=== PATIENT | male | born 1970 | race Caucasian/White ===

== ENCOUNTER 2018-05-17 15:30 | Emergency (ER) | payer OTHER, SELFPAY ==
[2018-05-17 15:32] VITALS: BP 147/91; PULSE 114; RESP 22; TEMP 36.2; O2SAT 100; BMI 25.1
--- NOTE | 2018-05-17 15:52 | ED.EXTPRO ---
HPI - Extremity Problem General Chief complaint: Extremity Problem,Nontraumatic Stated complaint: SHOOTING PAINS IN ARMS AND LEGS Time Seen by Provider: 05/17/18 15:41 Source: patient Mode of arrival: ambulatory Limitations: no limitations History of Present Illness HPI Narrative: Patient is a 48-year-old male who presents with sharp shooting pains down all of his extremities intermittently for the last 1 week. He says he notices it mostly right when he is about to fall asleep. In fact he stays awake pacing at night so that he does not notice it he has not been getting much sleep. On the way over here he had multiple episodes every 10 min and now he does not have any. Sharp shooting stabbing pains down left arm or right arm or lower legs. Initially started in his left arm he thought it was his heart. No time did he ever have any chest pain or shortness of breath. He has not had any fever. He has not taken any dkvs-hes-rwkuuzd medication for this. It is not associated with movement or rest. He has no weakness of the episodes are lasting only seconds. MD Complaint: extremity pain Related Data Allergies Allergy/AdvReac Type Severity Reaction Status Date / Time No Known Drug Allergies Allergy Verified 05/17/18 17:22 Review of Systems Review of Systems All systems reviewed & are unremarkable except as noted in HPI and below Constitutional Denies chills, Denies fever(s), Denies frequent falls, Denies lethargy and Denies weakness Eyes Denies change in vision, Denies eye discharge and Denies irritation ENT Ears, Nose, Mouth, and Throat: Denies dizziness Cardiovascular Denies chest pain, Denies irregular heart rhythm, Denies lightheadedness, Denies palpitations, Denies dyspnea, Denies dyspnea on exertion and Denies orthopnea Respiratory Denies cough, Denies dyspnea, Denies dyspnea on exertion and Denies wheezing Gastrointestinal Gastrointestinal: Denies abdominal pain, Denies change in bowel habits, Denies diarrhea, Denies nausea and Denies vomiting Genitourinary Denies hematuria, Denies flank pain, Denies urinary incontinence and Denies urinary urgency Musculoskeletal Denies back pain, Denies muscle weakness, Reports numbness and Denies tingling Integumentary/Breasts Denies pruritus, Denies erythema, Denies rash and Denies wounds Neurologic Denies dizziness, Denies frequent falls, Denies lack of coordination, Denies focal weakness, Reports numbness, Reports radicular pain, Denies tingling and Denies weakness Endocrine Denies palpitations Allergic/Immunologic Denies wheezing PFSH Social History Smoking Status: Never smoker Exam Initial Vital Signs Initial Vital Signs: Vital Signs Temperature 97.1 F L 05/17/18 15:32 Pulse Rate 114 H 05/17/18 15:32 Respiratory Rate 22 05/17/18 15:32 Blood Pressure 147/91 H 05/17/18 15:32 Pulse Oximetry 100 05/17/18 15:32 GENERAL: Well-appearing, well-nourished and in no acute distress. HEENT: Head atraumatic,EOMI, pupils reactive, face symmetric CARDIOVASCULAR: Regular rate and rhythm without murmurs, rubs or gallops. RESPIRATORY: Breath sounds equal bilaterally, no wheezes rales or rhonchi. ABDOMEN: Soft, nontender. Normoactive bowel sounds all 4 quadrants. No guarding or rebound. EXTREMITIES: Normal range of motion, no clubbing or edema. Neurovascularly intact NEUROLOGICAL: Alert and oriented x4.Normal gait and speech. Cranial nerves II through XII grossly intact. Good ytipgv-iy-qhza, good wppl-eb-orpo, strength equal bilaterally, no dysarthria or aphasia, sensation in tact to soft touch bilaterally, no visual changes, no facial droop SKIN: Warm, dry, no laceration, no petechiae, no rashes or lesions. Course Orders Ordered: ED Orders 05/17/18 15:41 EKG-12 Lead Stat 05/17/18 15:53 XR chest 1V Stat 05/17/18 16:30 Complete Blood Count AUTO DIFF Stat Comprehensive Metabolic Panel Stat Troponin & CK Cardiac Panel Stat Sodium Chloride (Normal Saline 0.9%) 1,000 mls @ 1,000 mls/hr IV CONT GERSON Last Infusion: 05/17/18 17:25 Dose: 0 mls/hr Admin: 05/17/18 16:38 Dose: 1,000 mls/hr Discontinued Medications Ketorolac Tromethamine (Toradol) 30 mg IV NOW ONE Stop: 05/17/18 15:54 Last Admin: 05/17/18 16:37 Dose: 30 mg Vital Signs - 8 hr 05/17/18 15:32 05/17/18 16:39 05/17/18 17:41 Temperature 97.1 F L Pulse Rate 114 H 89 80 Respiratory Rate 22 16 Blood Pressure 147/91 H Blood Pressure [Left Arm] 130/92 H 123/83 Pulse Oximetry 100 99 97 MDM - Extremity (Nontraumatic) Lab Data Attestation: I reviewed the patient's lab results. Result diagrams: 05/17/18 16:30 05/17/18 16:30 Lab Results 05/17/18 05/17/18 Range/Units 16:30 16:30 WBC 6.0 (4.5-11.0) X10^3/uL RBC 4.51 (4.5-5.9) X10^6/uL Hgb 14.5 (13.5-17.5) g/dL Hct 41.5 (41-53) % MCV 92.0 (80-100) fL MCH 32.2 (26-34) PG MCHC 35.0 (30-36) % RDW 12.3 (11.6-14.8) % Plt Count 233 (150-400) X10^3/uL Neut % (Auto) 64.8 (50-75) % Lymph % (Auto) 24.5 L (25-40) % [place] % (Auto) 9.4 (3-14) % Eos % (Auto) 0.9 L (2-4) % Baso % (Auto) 0.4 (0-2) % Neut # (Auto) 3900 (9320-8787) /uL Sodium 146 H (137-145) mmol/L Potassium 4.0 (3.4-5.1) mmol/L Chloride 108 H (98-107) mmol/L Carbon Dioxide 25 (22-32) mmol/L BUN 21 H (9-20) mg/dL Creatinine 0.80 (0.66-1.25) mg/dL Estimated GFR > 60.0 (>60) mL/min BUN/Creatinine Ratio 26.3 H (6-22) Glucose 92 (70-100) mg/dL Calcium 9.6 (8.4-10.2) mg/dL Total Bilirubin 0.6 (0.2-1.3) mg/dL AST 25 (17-59) IU/L ALT 29 (21-72) IU/L Alkaline Phosphatase 39 (38-126) U/L Total Creatine Kinase 58 (55-170) U/L CK-MB (CK-2) TNP CK-MB (CK-2) Rel Index TNP Troponin I < 0.012 (0.01-0.034) ng/mL Total Protein 7.9 (6.3-8.2) g/dL Albumin 4.7 (3.5-5.0) g/dL Globulin 3.2 (1.7-4.1) g/dL Albumin/Globulin Ratio 1.5 (1.0-2.8) Imaging Data Chest x-ray: Radiologist's impression: PROCEDURE: XR CHEST 1V INDICATIONS: chest pain TECHNIQUE: One view of the chest was acquired. COMPARISON: None. FINDINGS: Surgical changes and devices: None. Lungs and pleura: No pleural effusions or pneumothorax. Lungs are clear. Mediastinum: Mediastinal contours appear normal. Heart size is normal. Bones and chest wall: No suspicious bony lesions. Overlying soft tissues appear unremarkable. IMPRESSION: Negative chest. Dictated by: Daniel Ann M.D. on 05/17/2018 at 17:28 ECG Data Attestation EKG: I personally reviewed and interpreted this ECG as follows: Prior ECG tracings: not available for review Interpretation: Sinus rhythm rate [address] changes no T-wave inversions no priors to compare. MDM Narrative Medical decision making narrative: Patient has sharp shooting pains sporadically not consistent specific neuropathy or cardiac symptoms. The Toradol does seem to help. Blood work and EKG within normal limits. Discharge Plan Departure Patient Disposition: Home Clinical Impression: Neuropathy Instructions: DI for Peripheral Neuropathy Activity Restrictions/Additional Instructions: *You have been diagnosed with neuropathic pain *What to do: Blood work EKG chest x-ray all within normal limits symptoms not consistent with heart. If symptoms persist may require evaluation with Neurology *Continue to take medications as directed -Motrin 600 mg every 6-8 hours if needed for severe pain *Follow up with your primary care provider in 2-3 days *Return to ER if you should have any new, worsening or concerning symptoms Referrals: Kang Rose MD [Non-Staff] -
[2018-05-17] MEDS: KETOROLAC 60 MG/2 ML VIAL 30 MG IV (16:37)
[2018-05-17] MEDS: SODIUM CHLORIDE 0.9% 1,000 ML 1000 ML IV (16:38)
[2018-05-17 16:39] VITALS: BP 130/92; PULSE 89; RESP 16; O2SAT 99
[2018-05-17 16:44] LABS: Add Manual Diff / Slide Review NO; Basophils Percent Auto 0.4 % (0-2); Eosinophils Percent Auto 0.9 % (2-4); Hematocrit 41.5 % (41-53); Hemoglobin 14.5 g/dL (13.5-17.5); Lymphocytes Percent Auto 24.5 % (25-40); Mean Corpuscular Hemoglobin 32.2 PG (26-34); Monocytes Percent Auto 9.4 % (3-14); Neutrophils Absolute Auto 3900 /uL (3000-5900); Neutrophils Percent Auto 64.8 % (50-75); Platelet Count 233 X10^3/uL (150-400); Red Blood Cell Count 4.51 X10^6/uL (4.5-5.9); Red Cell Distribution Width 12.3 % (11.6-14.8)
[2018-05-17 16:58] LABS: Alanine Aminotransferase 29 IU/L (21-72); Albumin 4.7 g/dL (3.5-5.0); Albumin Globulin Ratio 1.5 (1.0-2.8); Alkaline Phosphatase 39 U/L (38-126); Aspartate Aminotransferase 25 IU/L (17-59); BUN Creatinine Ratio 26.3 (6-22); Bilirubin Total 0.6 mg/dL (0.2-1.3); Blood Urea Nitrogen 21 mg/dL (9-20); Calcium 9.6 mg/dL (8.4-10.2); Carbon Dioxide 25 mmol/L (22-32); Chloride 108 mmol/L (98-107); Creatine Kinase 58 U/L (55-170); Estimated Glomerular Filt Rate > 60.0 mL/min (>60); Globulin 3.2 g/dL (1.7-4.1); Glucose 92 mg/dL (70-100); HEMOLYSIS < 15 (0-50); Sodium 146 mmol/L (137-145); Total Protein 7.9 g/dL (6.3-8.2)
[2018-05-17 17:10] LABS: Troponin I < 0.012 ng/mL (0.01-0.034)
[2018-05-17 17:41] VITALS: BP 123/83; PULSE 80; O2SAT 97
[2018-05-17 17:50] VITALS: BP 123/83; PULSE 79; RESP 16; O2SAT 98
== END 2018-05-17 17:52 | disposition home or self-care (01) ==
PROVIDERS: Emergency Provider Emergency Medicine
DX: G62.9 Polyneuropathy, unspecified (principal)
CPT/HCPCS: 36591; 71045; 80053; 82550; 84484; 85025; 93005; 96361; 96374; 99283; 99285; J1885

== ENCOUNTER 2025-03-24 07:31 | Day surgery (SDC) | payer OTHER, SELFPAY ==
--- NOTE | 2025-03-24 | PATH_ITS ---
[facility] Accession Number: [id number] No. of containers..01 Tissue . 01 Material submitted: . colon - COLON, RIGHT POLYP . 01 Diagnosis: COLON, RIGHT POLYP: Tubular adenoma. [facility] 03/29/2025 1218 Local . 01 Electronically signed: . George Pringle MD, Pathologist NPI- [id number] . 01 Gross description: . COLON, RIGHT POLYP: Received in formalin is 1 fragment(s) of deleon, soft tissue measuring 0.7 x 0.5 x 0.5 cm submitted entirely in 1 cassette(s) /MARIANA 03/29/2025 1218 Local . 01 Pathologist provided ICD-10: D12.2 . 01 CPT . 380796 Specimen Comment: A courtesy copy of this report has been sent to [phone] Performed at: [address] [facility] [id number] MD George Pringle MD Phone: [phone]
[2025-03-24 07:54] VITALS: BP 154/91; PULSE 96; RESP 16; TEMP 36.1; O2SAT 99
[2025-03-24] MEDS: LACTATED RINGERS 1,000 ML 42 ML IV (08:12)
--- NOTE | 2025-03-24 08:28 | PM.HP.IH.1 ---
History of Present Illness History of Present Illness Date Patient Seen: 03/24/25 Chief complaint: Screening Colonoscopy Narrative: First screening colonoscopy [facility] Medical History (Updated 01/22/25 @ 19:26 by Arielle Leon MD) Cervical radiculopathy Lumbar back pain with radiculopathy affecting left lower extremity Elevated blood pressure reading Surgical History (Updated 02/04/25 @ 07:55 by Arielle Leon MD) S/P appy History of lumbosacral spine surgery Social History Smoking Status: Never smoker alcohol intake: current additional social history: OI: lived here for 7 yrs from -- [facility] lives with safe: yes tob: none etoh: occas. 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 FHX: alcohol CVA -- 70 yo f mother - 81 yo AFIB no cancer no sibs PSHX: back surgery @ 21 yo appy at 11 yo Meds Home Medications and Allergies Allergies Allergy/AdvReac Type Severity Reaction Status Date / Time No Known Drug Allergies Allergy Verified 03/24/25 07:53 Exam Vital Signs (past 8 hours): - 03/24/25 07:54 Temperature 97.0 F L Pulse Rate 96 H Respiratory Rate 16 Blood Pressure 154/91 H Pulse Oximetry 99 Oxygen Delivery Method Room Air Oxygen Delivery Method Room Air Narrative Exam Narrative: Oropharynx free Assessment & Plan Assessment & Plan narrative: 1st screening colonoscopy for colorectal cancer. Risks, benefits, alternatives have been explained. Time-Based Coding :: [TOTAL MINUTES] spent with patient and on the chart (including review of chart, obtaining history, exam, reviewing outside data, placing orders, documenting exam and treatment plan, and counseling patient) on [DATE]. 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
--- NOTE | 2025-03-24 08:29 | PM.OP.COLON ---
Operative Date/Time/Diagnoses Date of procedure: 03/24/25 Time of procedure: 08:50 Pre-op diagnosis: See indication and findings Post-op diagnosis: same Procedure & Clinicians Study performed: Colonoscopy Same procedure(s) as scheduled: Yes Indications: 1st screening colonoscopy Surgeon: Carolyne Patel Anesthesia Type: Other Procedure Notes Procedure in detail: After informed consent was obtained the patient was placed in left lateral decubitus position. The video colonoscope was introduced into the rectum slowly advanced cecum. Preparation was good. On slow withdrawal mucosa was carefully evaluated. The scope was removed. The patient tolerated procedure well. Blood loss none Complications none Sedation mac Findings 1. 1+ cm sessile polyp in the mid right colon cold snared and removed completely 2. Otherwise negative colonoscopy to cecum Depending on the pathology of this polyp recall should be within 3 or 5 years
[2025-03-24 08:54] VITALS: BP 129/74; PULSE 84; RESP 16; TEMP 36.2; O2SAT 100
[2025-03-24 09:07] VITALS: BP 129/87; PULSE 83; RESP 16; TEMP 36.2; O2SAT 98
[2025-03-24 09:16] VITALS: BP 123/74; PULSE 74; RESP 16; TEMP 36.2; O2SAT 98
== END 2025-03-24 09:28 | disposition home or self-care (01) ==
PROVIDERS: PCP Family Medicine; Referring Provider Internal Medicine Gastroenterology; Visit Provider Internal Medicine Gastroenterology
PROC: 0DJD8ZZ Inspection of Lower Intestinal Tract, Via Natural or Artificial Opening Endoscopic (ICD-10-PCS; CPT 45378; principal; 2025-03-24 08:45)
DX: Z12.11 Encounter for screening for malignant neoplasm of colon (principal); D12.2 Benign neoplasm of ascending colon
CPT/HCPCS: 45385; J2405; J2704

== ENCOUNTER → 2025-03-25 10:30 | Outpatient (CLI) | payer OTHER, SELFPAY ==
--- NOTE | 2025-03-25 10:31 | DI.MRI.S_ITS ---
PROCEDURE: MR LUMBAR SPINE WO CON INDICATIONS: history of lumbar spine surgery, recurrent pain, daily TECHNIQUE: Noncontrast sagittal T1 spin echo and T2 fast echo, sagittal STIR, and T2 fast spin echo through the lumbar spine. In cases with scoliosis, additional coronal T2 fast spin echo may be performed. COMPARISON: [facility] ([place]), CR, XR LUMBAR SPINE 2- 3V, 01/22/2025, 9:40. FINDINGS: Image quality: Excellent. Alignment and Curvature: There is minimal retrolisthesis seen at the L5-S1 level. Bone Marrow: Marrow is of normal overall signal. No acute vertebral body compression fractures. Spinal Cord: Conus medullaris terminates at the T12 level a level. Visualized cord demonstrates normal signal and size. Paraspinous Soft Tissues: No paravertebral masses. T12-L1: Normal appearance. L1-L2: Normal appearance. L2-L3: The disc height and disk signal are relatively well-preserved. Mild generalized disc bulge is seen. There is a superimposed central disc protrusion. No significant neural foraminal or central canal narrowing can be seen. L3-L4: The disc height and disk signal are relatively well-preserved. Mild generalized disc bulge is seen. There is an annular fissure seen posteriorly on the right, as on series 6, image 11 and on series 2 image 5. Mild facet joint hypertrophy is seen. Moderate bilateral neural foraminal narrowing can be seen, right worse than left. No significant central canal narrowing is seen. L4-L5: The disc height is well-preserved. Loss of disc signal is seen at this level. Reactive marrow endplate changes are seen, which are hyperintense on T1-weighted and T2-weighted imaging and most consistent with fatty metaplasia (Modic type II changes). Moderate generalized disc bulge is seen. Moderate facet joint hypertrophy is seen. There is moderate right-sided and mild left-sided neural foraminal narrowing. No central canal narrowing is seen. L5-S1: The disc height is well-preserved. Loss of disc signal is seen at this level. Moderate generalized disc bulge is seen. There is a central disc extrusion, with mild inferior migration of the disc material. There is wbak-ya-vbtytehq facet hypertrophy is seen. Moderate to severe Moderate central canal narrowing is seen. Mass effect can be seen upon the transiting bilateral S1 nerve roots. IMPRESSION: Degenerative changes are seen, which are overall worst at the L5-S1 level. Prior postoperative change at L4-L5, with right hemilaminectomy. Dictated by: Kelby Medina M.D. on 03/25/2025 at 18:08 Approved by: Kelby Medina M.D. on 03/25/2025 at 18:12
== END ==
LOC: MRI 10:31
PROVIDERS: PCP Family Medicine; Referring Provider Family Medicine; Visit Provider Family Medicine
DX: M51.16 Intervertebral disc disorders with radiculopathy, lumbar region (principal); M48.061 Spinal stenosis, lumbar region without neurogenic claudication; M47.26 Other spondylosis with radiculopathy, lumbar region; M51.17 Intervertebral disc disorders with radiculopathy, lumbosacral region; M48.07 Spinal stenosis, lumbosacral region; M47.27 Other spondylosis with radiculopathy, lumbosacral region; Z98.890 Other specified postprocedural states
CPT/HCPCS: 72148